=== PATIENT | female | born 1950 | race Caucasian/White ===

== ENCOUNTER 2022-08-06 12:08 | Emergency (ER) | payer MEDICARE, SELFPAY ==
[2022-08-06 12:30] VITALS: BP 99/55; PULSE 95; RESP 22; TEMP 37.4; O2SAT 98
--- NOTE | 2022-08-06 13:13 | ED.URI ---
HPI - URI/Sore Throat General Chief Complaint: Upper Respiratory Infection Stated Complaint: upper respiratory Time Seen by Provider: 08/06/22 13:13 Source: patient, RN notes reviewed and old records reviewed Mode of arrival: ambulatory Limitations: no limitations History of Present Illness HPI Narrative: 71-year-old female presents to the [facility] with complaints I have bronchitis. Patient states the only thing that works for her is azithromycin. States she does like taking prednisone due to it since her sugars and takes weird. Patient's vitals are stable. Denies any fevers. Reports that she has been using her nebulizer every hours to her symptoms states just getting any better. Patient has significant history but denies chest pain, or slow rate. Denies any new swelling. Patient states that she just wants to be treated for her bronchitis. Is adamantly declining going to the emergency room for evaluation. Stressed the importance if symptoms get worse or do not improve over next 24 hours that that is where she should be. Patient verbalized understanding. Related Data Home Medications Medication Instructions Recorded Confirmed albuterol sulfate 90 mcg/actuation See Rx Instructions .Route 08/06/22 08/06/22 aerosol inhaler .COMPLEX PRN sob apixaban 5 mg tablet (Eliquis) 5 mg PO BID 08/06/22 08/06/22 atorvastatin 20 mg tablet 20 mg PO DAILY 08/06/22 08/06/22 ipratropium 0.5 mg-albuterol 3 mg See Rx Instructions .Route 08/06/22 08/06/22 (2.5 mg base)/3 mL nebulization .COMPLEX PRN sob soln levothyroxine 75 mcg tablet 75 mcg PO DAILY 08/06/22 08/06/22 metformin 500 mg tablet 500 mg PO BID 08/06/22 08/06/22 metoprolol tartrate 25 mg tablet 25 mg PO BID 08/06/22 08/06/22 triamterene 37.5 1 tablet PO DAILY 08/06/22 08/06/22 mg-hydrochlorothiazide 25 mg tablet Allergies Allergy/AdvReac Type Severity Reaction Status Date / Time No Known Allergies Allergy Verified 08/06/22 12:42 Review of Systems Review of Systems: All systems reviewed & are unremarkable except as noted in HPI and below Constitutional: Constitutional: Reports no additional constitutional complaints Eyes: Eyes: Reports no additional eye complaints ENT: Reports system reviewed and no additional complaints, except as documented Cardiovascular: Cardiovascular: Reports no additional cardiovascular complaints, Denies chest pain and Denies dyspnea Respiratory: Respiratory: Reports as per HPI, Denies chest congestion, Reports cough, Denies dyspnea and Reports wheezing Gastrointestinal: Gastrointestinal: Reports no additional gastrointestinal complaints, Denies abdominal pain, Denies nausea and Denies vomiting Musculoskeletal: Musculoskeletal: Reports no additional musculoskeletal complaints Integumentary/Breasts: Skin/Breast: Reports system reviewed and no additional complaints, except as docu Neurologic: Reports system reviewed and no additional complaints, except as documented Psychiatric: Psychiatric: Reports no additional psychiatric complaints Allergic/Immunologic: Allergic/Immunologic: Reports no additional allergic/immunologic complaints PMFSH Comments At the time of my signature, I reviewed and agree with the nursing past medical, surgical, social, and family history. There is no relevant family history pertinent to the patient complaint. Exam Const: General: cooperative, comfortable, no acute distress, well developed, alert, ill appearing ( Acute on chronic) and well nourished Nutritional Appearance: well nourished and obese Orientation/consciousness: patient oriented x3 Limitations: no limitations HENMT: Head: normal to inspection Ears: hearing grossly normal bilaterally and external ears normal Face/Nose/Sinus: Normal external nose present, Normal nares present, Normal nasal mucous membranes and turbinates present and normal facial exam Face and sinus: normal facial exam Mouth: Yes Normal oral and palatal mucosa present
== END 2022-08-06 13:30 | disposition home or self-care (01) ==
PROVIDERS: Emergency Provider Nurse Practitioner; PCP Internal Medicine
DX: J40 Bronchitis, not specified as acute or chronic (principal); I48.91 Unspecified atrial fibrillation; E78.00 Pure hypercholesterolemia, unspecified; I10 Essential (primary) hypertension; J45.909 Unspecified asthma, uncomplicated; Z86.16 Personal history of COVID-19; Z96.653 Presence of artificial knee joint, bilateral; E11.9 Type 2 diabetes mellitus without complications
CPT/HCPCS: 99213; G0463